=== PATIENT | male | born 1950 | race Caucasian/White ===

== ENCOUNTER 2024-02-08 13:28 | Outpatient (AMB) | payer MEDICARE, SELFPAY ==
[2024-02-08 13:30] VITALS: BP 124/86; PULSE 74; TEMP 36.3; O2SAT 95; BMI 27.6
--- NOTE | 2024-02-08 13:30 | AM.OFFWIN_ITS ---
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 He states he was using a table saw and sliced his finge r. Pt states he is up to date on his tetanus vaccine. 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 Patient was working on a set of outside stairs when he cut his right thumb on a table saw. Patient states his last tetanus immunization was less than 1 year ago. [facility] Social History Patient Tobacco Use Status: Never used Tobacco Review of Systems Const All systems reviewed & are unremarkable except as noted in HPI and below Musc Reports as per HPI Skin/Breast Reports as per HPI, Reports lesions and Reports wounds (laceration right thumb) Neuro Reports no additional complaints Physical Exam Const General: cooperative, healthy appearing, comfortable, no acute distress, well developed, alert and awake Nutritional Appearance: average body habitus Orientation/consciousness: patient oriented x3 Limitations: no limitations Skin Other: there is a 3.5cm laceration on the palmar surface of the right distal thumb; no evidence of a retained foreign body, moderate active bleeding Trauma: laceration right distal thumb linear, actively bleeding, motor nerve function intact and sensation intact; no pulsatile bleeding and no foreign bodies present Neuro Other: Sensation intact right thumb and right hand. General: patient oriented x3 Extrem Other: ROM intact right thumb and all digits of the right hand. Psych Appearance: grossly normal Mental Status: mental status grossly normal Insight: Good insight present (Psych) Judgement: Good judgement present (Psych) Office Procedures Laceration Repair Details: 3cm linear laceration palmar surface of right distal thumb Laceration repair performed by: Elida Montes De Oca Explained risks and benefits to parent: Yes (Explained to patient.) Informed consent given: Yes Consent signed: No Location: right distal thumb Length: 3 cm Sedation: No Anesthesia: 2% lidocaine (Xylocaine) Irrigation: saline Preparation: betadine Wound exploration: other (No foreign body present) Deep closure: No Skin closure: nylon Technique: This laceration is approximated & closed with 11 simple interrupted sutures Topical treatment: dry Tetanus toxoid ordered: No (updated in 2022) Patient tolerated procedure: well Complications: No [id number] Repair 2.6-7.5cm Procedure code (CPT) selection complete Assessment & Plan Assessment & Plan (1) Laceration of right thumb: Comment: Laceration is approximated and repaired with 11 simple interrupted 5-0 sutures. Patient tolerated the procedure well and will return in 10 days for suture removal. Code(s): S61.011A - Laceration without foreign body of right thumb without damage to nail, initial encounter Plan: Patient will return in 10 days for suture removal; reviewed suture care as well as the need to return for any signs of infection including fever, increased pain, discharge from the wound or redness. Patient's questions are all answered prior to discharge. Coding Level of Care Code New Pt Level 4 (68698) Diagnoses Laceration of right thumb S61.011A Time Spent (min) 55
== END 2024-02-08 15:27 | disposition home or self-care (01) ==
PROVIDERS: Visit Provider Physician Assistant
DX: S61.011A Laceration without foreign body of right thumb without damage to nail, initial encounter (principal)
CPT/HCPCS: 99204

== ENCOUNTER 2024-02-19 12:52 | Outpatient (AMB) | payer MEDICARE, SELFPAY ==
[2024-02-19 12:54] VITALS: BP 120/70; PULSE 72; TEMP 36.5; O2SAT 95; BMI 27.6
--- NOTE | 2024-02-19 12:54 | MHC.OFFWIV ---
Intake Vital Signs 02/19/24 12:54 Height 6 ft 4 in Weight 227 lb BMI 27.6 BP 120/70 Blood Pressure Location Lt brachial Position Sitting Pulse 72 Pulse Source Pulse Oximeter Temp 97.7 F Temp Source Temporal Artery Scan Pulse Oximetry (%) 95 Oxygen Delivery Method Room Air Intake Visit Reasons: Est/ stitch removal right thumb (lobby) Intake Note: pt is here today for stitch removal Patient Tobacco Use Status: Never used Tobacco Allergies No Known Allergies Allergy (Verified 02/23/24 11:38) Do you need a note to return to daycare/school/sports/work: No HPI HPI Comments History of Present Illness Details Patient presents today for suture removal of the stitch in his right thumb. The wound is well healed no pain no discharge PFSH Social History Patient Tobacco Use Status: Never used Tobacco Review of Systems Const All systems reviewed & are unremarkable except as noted in HPI and below Physical Exam Vital Signs: Last Vital Signs Temp 97.7 F 02/19/24 12:54 Pulse 72 02/19/24 12:54 BP 120/70 02/19/24 12:54 Pulse Ox 95 02/19/24 12:54 Oxygen Delivery Method Room Air 02/19/24 12:54 BMI result Body Mass Index 27.6 Extrem Other: Physical physical exam reveals 1 stitch in the right thumb. No discharge not as erythematous Assessment & Plan Assessment & Plan (1) Visit for suture removal: Code(s): Z48.02 - Encounter for removal of sutures Plan Suture removal without difficulty Coding Level of Care Code Est Pt Level 3 (27098) Diagnoses Visit for suture removal Z48.02
== END 2024-02-19 13:36 | disposition home or self-care (01) ==
PROVIDERS: Visit Provider Physician Assistant Medical
DX: Z48.02 Encounter for removal of sutures (principal)
CPT/HCPCS: 15853; 99213

== ENCOUNTER 2024-02-23 10:03 | Outpatient (AMB) | payer MEDICARE, SELFPAY ==
--- NOTE | 2024-02-23 11:36 | MHC.OFFWIV ---
Intake Vital Signs 02/23/24 11:37 Height 6 ft 4 in Weight 226 lb BMI 27.5 BP 124/72 Blood Pressure Location Lt brachial Position Sitting Pulse 61 Pulse Source Pulse Oximeter Temp 97.9 F Temp Source Oral Pulse Oximetry (%) 98 Oxygen Delivery Method Room Air Intake Visit Reasons: EP ?infection on finger Intake Note: Patient is here with right infected? thumb, would like it have looked at, it recently had a discharge. 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 He reports that he cut the thumb on a table saw just over 2 weeks ago, and had it sutured here at the walk-in the same day. He reports that 11 sutures were used to close the wound, and he had sutures removed on day 11 (4 days ago), again here at the walk-in. He reports that the wound has not healed since then, and he is worried that it is infected. It has been opening, and has had an apparent discharge with dressing changes. He has continued to work despite the injury. He denies significant pain to the wound, weakness, numbness or tingling, fever or chills, or other systemic symptoms of infection. No poor wound healing history or immuno compromising history reported. Denies tobacco use [facility] Social History Patient Tobacco Use Status: Never used Tobacco Review of Systems Const All systems reviewed & are unremarkable except as noted in HPI and below Physical Exam Vital Signs: Last Vital Signs Temp 97.9 F 02/23/24 11:37 Pulse 61 02/23/24 11:37 BP 124/72 02/23/24 11:37 Pulse Ox 98 02/23/24 11:37 Oxygen Delivery Method Room Air 02/23/24 11:37 BMI result Body Mass Index 27.5 Extrem Other: Patient has an apparent dehiscence of a laceration to the palmar surface of his right distal thumb tip. There is some crusting to the wound, but no gross discharge. Skin surrounding is mildly erythematous and edematous and warm to the touch. Capillary refills good, and he is neurovascularly intact. Range of motion, and strength intact, but tenderness to palpation to the laceration area. Assessment & Plan Assessment & Plan (1) Dehiscence of laceration repair: Code(s): T81.33XA - Disruption of traumatic injury wound repair, initial encounter Qualifiers: Encounter type: initial encounter Qualified Code(s): T81.33XA - Disruption of traumatic injury wound repair, initial encounter Plan: Patient is a 73-year-old male who recently had suture removal for a laceration to his right thumb that required 11 simple interrupted sutures to close, performed here at the walk-in. The sutures were apparently in place for 11 days and/or removed 4 days ago. Since then patient has noticed the laceration begin to open, and he is noticed discharge. There is nothing for me to culture on exam today, as there is no active discharge, however I am going to start him empirically on doxycycline for 10 days. He should monitor the laceration and follow-up if it does not seem like he is continuing to improve over the next few days, with complete wound healing. He should keep the wound clean covered and dry, and avoid grasping or pinching tests with the thumb. He works as a latif, and as continued his work despite the injury. Medications: New doxycycline monohydrate 100 mg PO BID 20 caps 0RF cellulitis 10 days Coding Level of Care Code Est Pt Level 4 (43894) Diagnoses Dehiscence of laceration repair, initial encounter T81.33XA Encounter type: initial encounter
[2024-02-23 11:37] VITALS: BP 124/72; PULSE 61; TEMP 36.6; O2SAT 98; BMI 27.5
== END 2024-02-23 13:30 | disposition home or self-care (01) ==
PROVIDERS: Visit Provider Physician Assistant Medical
DX: T81.33XA Disruption of traumatic injury wound repair, initial encounter (principal)
CPT/HCPCS: 99214